=== PATIENT | female | born 2005 | race Caucasian/White ===

== ENCOUNTER 2025-02-08 06:34 | Inpatient (IN) | payer MEDICAID ==
[2025-02-08] MEDS ORDERED: ePHEDrine 50 MG/ML SDV IVPUSH PRN (08:16)
[2025-02-08] MEDS ORDERED: dexmedeTOMIDine HCl 200 MCG/2 ML SDV EPIDUR SCH (08:30)
[2025-02-08] MEDS ORDERED: Ondansetron 4 MG/2 ML SDV IVPUSH PRN (08:42)
[2025-02-08] MEDS ORDERED: Sodium Chloride 0.9% 10 ML Syringe FLUSH PRN (08:42)
[2025-02-08] MEDS ORDERED: Butorphanol 1 MG/ML SDV IVPUSH PRN (08:42)
[2025-02-08] MEDS ORDERED: Sodium Chloride 0.9% 2.5 ML Syringe FLUSH PRN (08:42)
[2025-02-08] MEDS ORDERED: Carboprost Tromethamine 250 MCG/1 mL Vial IM PRN (08:42)
[2025-02-08] MEDS ORDERED: Water For Irrigation,Sterile 1,000 ML Container IRR PRN (08:42)
[2025-02-08] MEDS ORDERED: Oxytocin/0.9 % Sodium Chloride 30 UNIT/500 ML BAG IV SCH (08:45)
[2025-02-08] MEDS: Lactated Ringers 1,000 ML IV SCH (09:14)
[2025-02-08 09:46] LABS: MEAN PLATELET VOLUME 9.6 fL (9.4-12.3); NRBC ABSOLUTE 0.00 K/uL (0.00-0.02); NRBC PERCENT 0.0 /100WBC (0.0-0.2); PLATELET COUNT,PLT 325 K/uL (150-400); RED BLOOD CELL COUNT 3.98 M/uL (4.10-5.30); WHITE BLOOD CELL COUNT,WBC 13.57 K/uL (3.9-11.3)
[2025-02-08] MEDS: Ropivacaine HCl/PF 400 MG in Premix Bag 1 BAG EPIDUR SCH (11:26)
[2025-02-08] MEDS ORDERED: Terbutaline 1 MG/ML SDV SUBCUT PRN (13:53)
[2025-02-08] MEDS ORDERED: Misoprostol 25 MCG (1/4 of 100 MCG) Tab VAG PRN ×2 (13:53)
[2025-02-08] MEDS: Oxytocin/0.9 % Sodium Chloride 30 UNIT/500 ML BAG IV SCH (14:20)
[2025-02-08] MEDS: Fluticasone NASAL Spray 16 GM Bottle NASBOTH SCH (14:41)
[2025-02-08] MEDS ORDERED: Lanolin 100% Cream 7 GM Tube TOP PRN (19:48)
[2025-02-08] MEDS: fentaNYL 100 MCG/2 ML SDV EPIDUR ONE (20:06)
[2025-02-08 22:14] LABS: PH,UMBILICAL ARTERIAL 7.37 (7.18-7.38); PH,UMBILICAL VENOUS 7.32 (7.25-7.45)
[2025-02-09] MEDS: Witch Hazel Medicated Pads 40/Jar TOP PRN (00:21)
[2025-02-09] MEDS: Benzocaine/Menthol 20%-0.5% Spray 78 GM Cannister TOP PRN (00:22)
== END 2025-02-09 22:30 | disposition home or self-care (01) | DRG 807 ==
LOC: MW.OBCHECK 06:34 → MW.OB 06:35 → MW.OBCHECK 09:05 → MW.OB 09:07 → OBSVTOIN 19:48 → MW.OB 22:47
PROVIDERS: ADMIT Obstetrics & Gynecology Gynecology; ATTEND Obstetrics & Gynecology Obstetrics
PROC: 10E0XZZ Delivery of Products of Conception, External Approach (ICD-10-PCS; principal; 2025-02-08)
PROC: 0KQM0ZZ Repair Perineum Muscle, Open Approach (ICD-10-PCS; 2025-02-08)
PROC: 3E0R3BZ Introduction of Anesthetic Agent into Spinal Canal, Percutaneous Approach (ICD-10-PCS; 2025-02-08)
PROC: 00HU33Z Insertion of Infusion Device into Spinal Canal, Percutaneous Approach (ICD-10-PCS; 2025-02-08)
DX: O42.02 Full-term premature rupture of membranes, onset of labor within 24 hours of rupture (principal); Z37.0 Single live birth; O99.214 Obesity complicating childbirth; J45.909 Unspecified asthma, uncomplicated; O99.52 Diseases of the respiratory system complicating childbirth; J06.9 Acute upper respiratory infection, unspecified; O77.0 Labor and delivery complicated by meconium in amniotic fluid; O70.1 Second degree perineal laceration during delivery; Z88.0 Allergy status to penicillin; Z3A.38 38 weeks gestation of pregnancy
CPT/HCPCS: 01967; 36415; 59025; 59409; 82803; 84112; 85014; 85018; 85027; 86592; 86850; 86900; 86901; A9270-GY; J0665; J2371; J2590; J2795; J3010; J7120

== ENCOUNTER 2025-02-12 16:43 | Emergency (ER) | payer MEDICAID ==
[2025-02-12] MEDS ORDERED: Sodium Chloride 0.9% 10 ML Syringe FLUSH PRN (17:34)
[2025-02-12] MEDS ORDERED: Sodium Chloride 0.9% 2.5 ML Syringe FLUSH PRN (17:34)
[2025-02-12] MEDS: Ketorolac 30 MG/ML SDV IVPUSH ONE (18:06)
[2025-02-12 18:07] LABS: BASOPHILS ABSOLUTE AUTO 0.08 K/uL (0.00-0.20); BASOPHILS PERCENT AUTO 0.5 % (0.0-1.0); EOSINOPHILS ABSOLUTE AUTO 0.35 K/uL (0.00-0.45); EOSINOPHILS PERCENT AUTO 2.2 % (0.0-6.0); IMMATURE GRAN ABSOLUTE AUTO 0.11 K/uL (0.00-0.05); IMMATURE GRAN PERCENT AUTO 0.7 % (0.0-0.4); LYMPHOCYTES ABSOLUTE AUTO 2.69 K/uL (1.00-4.80); LYMPHOCYTES PERCENT AUTO 17.3 % (24.0-44.0); MEAN PLATELET VOLUME 9.4 fL (9.4-12.3); MONOCYTES ABSOLUTE AUTO 0.75 K/uL (0.00-0.80); MONOCYTES PERCENT AUTO 4.8 % (0.0-8.0); NEUTROPHILS ABSOLUTE AUTO 11.58 K/uL (1.80-7.70); NEUTROPHILS PERCENT AUTO 74.5 % (41.0-71.0); NRBC ABSOLUTE 0.00 K/uL (0.00-0.02); NRBC PERCENT 0.0 /100WBC (0.0-0.2); PLATELET COUNT,PLT 333 K/uL (150-400); RED BLOOD CELL COUNT 3.77 M/uL (4.10-5.30); WHITE BLOOD CELL COUNT,WBC 15.56 K/uL (3.9-11.3)
[2025-02-12 18:39] LABS: LACTIC ACID 2.0 mmol/L (0.4-2.0)
[2025-02-12 18:45] LABS: A/G RATIO 0.5 (0.9-1.6); ALANINE AMINOTRANSFERASE,ALT 25.0 IU/L (14-63); ASPARTATE AMNIOTRANSFERASE,AST 27.0 IU/L (15-37); BILIRUBIN TOTAL 0.2 mg/dL (0.2-1.0); BLOOD UREA NITROGEN,BUN 13.0 mg/dL (7.0-18.0); CARBON DIOXIDE,CO2 25.5 mmol/L (21.0-32.0); CHLORIDE,CL 105.0 mmol/L (98-107); CREATININE 0.8 mg/dL (0.6-1.0); EST CRCL DRUG DOSING (CG) 92.79 mL/min; GLUCOSE RANDOM 86.0 mg/dL (74-106); POTASSIUM,K 3.6 mmol/L (3.5-5.1); PRO B-TYPE NATRIUR PEPT,BNPPRO 131.0 pg/mL (0-125); PROTEIN TOTAL,TP 7.4 g/dL (6.4-8.2); SODIUM,NA 141.0 mmol/L (136-145); TSH ULTRASENSITIVE 1.76 uIU/mL (0.36-3.74)
[2025-02-12 18:47] LABS: ESTIMATED GFR 108.0 mL/min (>60)
[2025-02-12 19:16] LABS: APPEARANCE,URINE CLOUDY; GLUCOSE,URINE NEGATIVE (NEGATIVE); OCCULT BLOOD,URINE LARGE (NEGATIVE)
[2025-02-12 19:23] LABS: SQUAMOUS EPITHELIAL CELLS,UR MODERATE
[2025-02-12] MEDS: cefTRIAXone 1 GM in Water For Injection, Sterile 10 ML IVPUSH ONE (19:45)
== END 2025-02-12 20:10 | disposition home or self-care (01) ==
LOC: MW.ED 16:43
DX: N39.0 Urinary tract infection, site not specified (principal); R07.89 Other chest pain
CPT/HCPCS: 36415; 71045; 76856; 80053; 81001; 83605; 83880; 84443; 84484; 85025; 87040; 87086; 96361; 96374; 96375; 99284; J0696; J1885; J7030